=== PATIENT | female | born 1950 | race Caucasian/White ===

== ENCOUNTER 2021-12-25 06:58 | Emergency (ER) | payer MEDICARE, OTHER, SELFPAY ==
--- NOTE | ~2021-12-25 | XR_ITS ---
EXAMINATION: XR SHOULDER, LEFT CLINICAL INFORMATION: Fall, shoulder pain COMPARISON: None TECHNIQUE: AP external rotation, Grashey, scapular Y, and axillary views of the left shoulder. FINDINGS: The bones and soft tissues are normal. No fracture. There is loss of left AC joint space with periarticular spurring. There are enthesophytes along the superior and inferior acromion and greater tuberosity. No abnormal soft tissue calcifications. XR/XR shoulder LT min 2V IMPRESSION: No acute fracture or dislocation. There is mild degenerative changes left AC joint.
[2021-12-25 07:11] VITALS: BP 123/78; PULSE 68; RESP 18; TEMP 36.7; O2SAT 97; BMI 37.5
--- NOTE | 2021-12-25 09:47 | ED_ITS ---
HPI - Fall General Chief Complaint: Fall Stated Complaint: L Shoulder pain/Fall Time Seen by Provider: 12/25/21 09:19 Source: patient Mode of arrival: ambulatory History of Present Illness HPI Narrative: 71-year-old female with no significant past medical history presented to the ED complaining left shoulder pain S/P mechanical slip and fall last night while caring lawn chair and running away from the skunk. Reports landing on left suhas ulder, denies head trauma or LOC. Denies taking anticoagulation. Reports pain with ROM/decreased ROM. Denies headache, neck/back pain, numbness, tingling, CP/SOB complaint: fall Onset (ago): hour(s) Related Data Previous Rx's Medication Instructions Recorded acetaminophen 500 mg tablet 500 mg PO Q6H PRN fever or pain 12/25/21 (Tylenol Extra Strength) #14 tabs cyclobenzaprine 5 mg tablet 5 mg PO Q8H PRN pain (scale score 12/25/21 7-10) 5 days #14 tabs lidocaine 5 % topical patch 1 patch topical DAILY PRN pain #30 12/25/21 (Lidoderm) ea Allergies Allergy/AdvReac Type Severity Reaction Status Date / Time Sulfa (Sulfonamide Allergy Rash Verified 12/25/21 07:10 Antibiotics) amoxicillin [From AUGMENTIN] AdvReac Mild NAUSEA & Unverified 02/09/20 15:45 VOMITING clavulanic acid AdvReac Mild NAUSEA & Unverified 02/09/20 15:45 [From AUGMENTIN] VOMITING Review of Systems Review of Systems: Constitutional: No Fever, No Chills ENT/Mouth: No Ear Pain, No Nasal Congestion, No sore throat, No Rhinorrhea, No Swallowing Difficulty Cardiovascular: No Chest Pain, No SOB Respiratory: No Cough, No Sputum, No Wheezing Gastrointestinal: No Nausea, No Vomiting, No Diarrhea, No Constipation, No Abdominal pain Genitourinary: No Dysuria, No Urinary Frequency, No Hematuria, No Urinary Incontinence/retention Musculoskeletal: + joint pain, No Myalgias, No Joint Swelling Skin: No Skin Lesions, No rash Neuro: No Weakness, No Numbness, No Paresthesias, no head trauma, no LOC Yes all other systems are reviewed and are negative Constitutional: Constitutional: Reports as per [facility] Past Medical History Attestation statement: The following information was validated with the patient. Social History Social History Advance Directives: Yes Advance Directives Information Provided: No Advance Directives on File: No Physical Exam Vital Signs: Vital Signs: Last Vital Signs Temp 98.0 F 12/25/21 07:11 Pulse 68 12/25/21 07:11 Resp 18 12/25/21 07:11 BP 123/78 12/25/21 07:11 Pulse Ox 97 12/25/21 07:11 O2 Del Method 12/25/21 07:11 BMI result Body Mass Index 37.5 Const: General: cooperative, healthy appearing and no acute distress Orientation/consciousness: patient oriented x3 Limitations: no limitations HEENT: Head: Yes normal to inspection and Yes atraumatic Ears: hearing grossly normal bilaterally General nose exam: Normal external nose present Face and sinus: Yes normal facial exam Eyes: General: appearance normal, both eyes and all related structures EOM: EOMs intact bilaterally Neck: Other: No midline cervical spinous tenderness Neck: Yes normal visual inspection and Yes no meningeal signs Resp: Effort & Inspection: normal respiratory effort and no respiratory distress Cardio: Rate: regular rate Heart sounds: S1 normal heart sound present and S2 normal heart sound present Peripheral pulses: radial pulses present and ulnar radial pulses present Skin: Rashes: no rashes Wounds: no wounds Neuro: General: patient oriented x3, tone normal and no meningeal signs Gait exam (Neuro): Normal gait present Extrem: Other: Left shoulder without noted deformity. + tender to palpation greatest at AC joint. No erythema/warmth. Abduction and internal rotation limited secondary to pain. Neurovascular intact distally Course Course Course Narrative: XR shoulder LT min 2V IMPRESSION: No acute fracture or dislocation. ? There is mild degenerative changes left AC joint. > Results discussed with patient including worrisome signs and symptoms and strict return precautions, and when to return to the emergency department. They verbalized understanding and feel safe for discharge at this time. MDM - Fall MDM Narrative Medical decision making narrative: 71-year-old female with no significant past medical history presented to the ED complaining left shoulder pain S/P mechanical slip and fall last night while caring lawn chair and running away from the skunk. On exam vital signs stable, NAD/nontoxic, physical exam as above. Concern for fracture vs tendon or ligamental injury. Lower suspicion for dislocation Plan: X-rays Medical Records Attestation: I reviewed the patient's medical records. Lab Data Attestation: I reviewed the patient's lab results. Discharge Plan Discharge Clinical Impression: Injury of shoulder, left Patient Disposition: Home, Self-Care Instructions: Shoulder Pain (ED) Additional Instructions: Your x-rays do not show any fracture or dislocation, do show mild arthritic changes. Rest, ice, take Tylenol and Flexeril for pain. Flexeril as a muscle relaxer, take at night as it makes you drowsy, do not drive, drink alcohol, or operate machinery while taking. Follow up with her primary care doctor and Orthopedics as needed. You may have an underlying tendon or ligamental injury which could require MRI. Prescriptions: New acetaminophen [Tylenol Extra Strength] 500 mg tablet 500 mg PO Q6H PRN (Reason: fever or pain) Qty: 14 0RF cyclobenzaprine 5 mg tablet 5 mg PO Q8H PRN (Reason: pain (scale score 7-10)) 5 Days Qty: 14 0RF lidocaine [Lidoderm] 5 % adhesive patch,medicated 1 patch topical DAILY MDD remove after 12 hours PRN (Reason: pain) Qty: 30 0RF Rx Instructions: leave on most painful area for up to 12 hrs Referrals: Israel Cope MD [Physician] -
[2021-12-25] MEDS: Cyclobenzaprine HCl 5 MG TABLET PO (10:02)
[2021-12-25] MEDS: Lidocaine 4 % Patch ADH..PATCH 1 PATCH TRANSDERMA (10:03)
== END 2021-12-25 10:14 | disposition home or self-care (01) ==
PROVIDERS: Emergency Provider Emergency Medicine Emergency Medical Services; PCP Internal Medicine
DX: S46.912A Strain of unspecified muscle, fascia and tendon at shoulder and upper arm level, left arm, initial encounter (principal); W01.0XXA Fall on same level from slipping, tripping and stumbling without subsequent striking against object, initial encounter; Y93.9 Activity, unspecified; Y92.9 Unspecified place or not applicable; Y99.9 Unspecified external cause status; Z79.899 Other long term (current) drug therapy
CPT/HCPCS: 73030; 99283

== ENCOUNTER 2022-01-03 07:49 | Outpatient (REF) | payer MEDICARE, OTHER, SELFPAY ==
--- NOTE | ~2022-01-03 | XR_ITS ---
EXAMINATION: XR SHOULDER, LEFT CLINICAL INFORMATION: Pain COMPARISON: Previous x-ray 12/25/2021 TECHNIQUE: Three views of the left shoulder. FINDINGS: Bone alignment is normal. No fracture or dislocation is seen. The glenohumeral joint is normal. There is arthritis at the acromioclavicular joint. Soft tissues are normal. XR/XR shoulder LT min 2V IMPRESSION: Arthritis at the acromioclavicular joint.
== END 2022-01-03 07:50 | disposition home or self-care (01) ==
LOC: HO.HOSX 07:49
PROVIDERS: Visit Provider Physician Assistant
DX: M25.512 Pain in left shoulder (principal)
CPT/HCPCS: 73030

== ENCOUNTER 2022-02-17 05:58 | Outpatient (REF) | payer MEDICARE, OTHER, SELFPAY ==
--- NOTE | ~2022-02-17 | XR_ITS ---
EXAMINATION: XR SHOULDER, LEFT CLINICAL INFORMATION: Pain COMPARISON: Shoulder radiographs 01/03/2022 TECHNIQUE: Two views of the left shoulder. FINDINGS: No acute fracture or dislocation. Moderate osteoarthritis involving the acromioclavicular joint. Glenohumeral joint space is maintained. Soft tissues are unremarkable. XR/XR shoulder LT min 2V IMPRESSION: Moderate osteoarthritis involving the acromioclavicular joint similar to prior.
== END 2022-02-17 05:59 | disposition home or self-care (01) ==
LOC: HO.HOSX 05:58
PROVIDERS: Visit Provider Physician Assistant
DX: M25.512 Pain in left shoulder (principal)
CPT/HCPCS: 73030

== ENCOUNTER 2022-04-09 12:55 | Outpatient (REF) | payer MEDICARE, OTHER, SELFPAY ==
[2022-04-09 14:59] LABS: Blood Urea Nitrogen 26 mg/dL (9-16); Estimated Glomerular Filt Rate 31
== END 2022-04-09 12:56 | disposition home or self-care (01) ==
LOC: HO.LAB 12:55
PROVIDERS: PCP Internal Medicine; Visit Provider Physician Assistant
DX: N20.0 Calculus of kidney (principal)
CPT/HCPCS: 36415; 82565; 84520

== ENCOUNTER 2022-04-10 13:55 | Outpatient (REF) | payer MEDICARE, OTHER, SELFPAY | END 2022-04-10 13:56 | disposition home or self-care (01) | LOC: HO.CT 13:55 | PROVIDERS: Visit Provider Physician Assistant | DX: Z13.89 Encounter for screening for other disorder (principal) ==

== ENCOUNTER 2022-04-16 10:00 | Outpatient (RCR) | payer MEDICARE, OTHER, SELFPAY ==
--- NOTE | 2022-01-17 09:50 | MHC.PT.EP ---
[facility] [place] Office [place] Office [place] Office [address] [phone] F: [phone] F: [phone] F: [phone] F: [phone] Physical Therapy Plan of Care Date of Evaluation: Date of Surgery: N/A Diagnosis: Left avulsion fx of greater tuberosity of humerus (RC + BB) Assessment: pt is a 71yo F presenting to PT with referring diagnosis of greater tuberosity of humerus fx . pt presents with symptoms including; pain, and decreased ROM, poor postural awareness, deferred strength testing of UE today. pt has difficulty with ADLs, reaching, lifting, driving, pulling, pushing, dressing, gardening. pt is a good candidate for skilled PT because she is motivated, pathology and typical disease process. pt will benefit from skilled pt to improve strength, increase ROM, stretching, proper implementation of protocol to advance healing progressively, education on postural awareness, functional mobility, proper lifting mechanics. Frequency and Duration: The patient will be seen 2x/week for 6 weeks Short Term Goals: pt will be I in HEP to promote self management of post-fx status. pt will increase shoulder flexion ROM by 10* to assist in overhead activities. Penitentiary Goals: pt will improve by a statistically significant amount on quick DASH self reported outcome measure to show return to PLOF pt will improve shoulder flexion and abduction strength to 5/5 MMT after period of immobilization and limited use to increase I in ADLs. Treatment Plan: Modalities to reduce pain, spasms and effusion. Manual therapy to restore motion and function. Therapeutic exercise to improve strength and flexibility. Neuromuscular re-education for posture and balance. Therapeutic activities to return to functional activities of daily living. Electronically signed by: Cathy Graham PT, DPT Please sign and return to therapist. Thank you for your referral.
--- NOTE | 2022-04-28 11:00 | MHC.PT.DC ---
[facility] [place] Office [place] Office [place] Office [address] [phone] F: [phone] F: [phone] F: [phone] F: [phone] Physical Therapy Discharge Report Diagnosis: Left avulsion fx of greater tuberosity of humerus (RC + BB) Date of Surgery: N/A Date of Evaluation: 01/17/22 Date of Discharge: 04/28/22 Treatments to Date: 16 Cancellations to Date: 2 No Shows to Date: 1 Discharge Status: Discharge Summary: The patient overall has been reporting less pain/soreness and improved tolerance for ADLs and other activities around the house. She has persistent reproduction of symptoms with forward and outward reaching higher than shoulder height. We have discussed setting up her home environment to reduce overhead reaching to minimize pain symptoms and reduce stress on shoulder. She is independent with her home exercise program which is quite extensive at this time. She has learned to break it down into smaller and more manageable chunks. She no showed her last appointment and is being discharged at this time. Electronically signed by: Cathy Graham PT, DPT Please sign and return to therapist. Thank you for your referral.
== END 2022-04-28 11:00 | disposition home or self-care (01) ==
LOC: HO.PT 10:00
PROVIDERS: Visit Provider Physician Assistant
DX: S42.252A Displaced fracture of greater tuberosity of left humerus, initial encounter for closed fracture (principal)
CPT/HCPCS: 97110; 97140; 97150; 97162

== ENCOUNTER 2022-04-30 08:07 | Outpatient (REF) | payer MEDICARE, OTHER, SELFPAY ==
--- NOTE | ~2022-04-30 | XR_ITS ---
EXAMINATION: XR SHOULDER, LEFT CLINICAL INFORMATION: Left shoulder pain COMPARISON: 02/17/2022 TECHNIQUE: Two views of the left shoulder. FINDINGS: No fracture or dislocation. The glenohumeral joint is well aligned. The acromioclavicular joint is intact with mild hypertrophic degenerative change. Subacromial spur noted. The visualized lung is clear. The visualized ribs are intact. XR/XR shoulder LT min 2V IMPRESSION: Mild degenerative changes of the acromioclavicular joint. Subacromial spur.
== END 2022-04-30 08:08 | disposition home or self-care (01) ==
LOC: HO.HOSX 08:07
PROVIDERS: Visit Provider Physician Assistant
DX: S42.252A Displaced fracture of greater tuberosity of left humerus, initial encounter for closed fracture (principal); M75.02 Adhesive capsulitis of left shoulder
CPT/HCPCS: 73030; 99212

== ENCOUNTER → 2022-05-12 11:12 | Outpatient (BNVA) | payer MEDICARE, OTHER, SELFPAY | PROVIDERS: PCP Internal Medicine; Visit Provider Orthopaedic Surgery | DX: S42.253A Displaced fracture of greater tuberosity of unspecified humerus, initial encounter for closed fracture (principal); M75.101 Unspecified rotator cuff tear or rupture of right shoulder, not specified as traumatic; S42.252A Displaced fracture of greater tuberosity of left humerus, initial encounter for closed fracture | CPT/HCPCS: 99212 ==

== ENCOUNTER 2022-07-23 07:20 | Outpatient (REF) | payer MEDICARE, OTHER, SELFPAY ==
--- NOTE | ~2022-07-23 | CT_ITS ---
EXAMINATION: CT ABDOMEN AND PELVIS WITHOUT CONTRAST CLINICAL INFORMATION: Right upper quadrant calcification. COMPARISON: None TECHNIQUE: Multidetector volumetric imaging was performed from the superior aspect of the liver through the pubic symphysis. Sagittal and coronal reformatted images were obtained on the technologist's workstation. This CT examination was performed using dose optimization techniques as appropriate, variously including the following: *Automated exposure control *Adjustment of mA and/or kV according to patient size (this includes techniques or standardized protocols for targeted exams where dose is matched to indication/reason for exam; i.e. extremities or head) *Use of iterative reconstruction technique DLP: 534 mGy-cm FINDINGS: LUNG BASES: Minimal linear atelectasis in the lingula. There is minimal bilateral posterior pleural thickening. The heart size is normal. LIVER, GALLBLADDER, AND BILIARY TREE: The liver is normal in size, shape, and attenuation. No focal hepatic lesion or biliary ductal dilatation is present. There are multiple dependent radiopaque gallstones without wall thickening. PANCREAS: Unremarkable. SPLEEN: Unremarkable. ADRENAL GLANDS: Unremarkable. KIDNEYS AND URETERS: The kidneys are normal in size, shape, and attenuation. No hydronephrosis, hydroureter, or calculi seen. There are bilateral renal cysts. Largest cyst exophytic lower pole left kidney measures 2.5 cm. There is bilateral perinephric stranding. There is a retroaortic left renal vein present. BLADDER: Unremarkable. GASTROINTESTINAL TRACT: There is scattered stool, diverticuli and gas seen throughout the colon without distention. The small-bowel loops are normal caliber. Appendix is not visualized. ABDOMINAL WALL: No significant hernia is appreciated. LYMPH NODES: Normal. VASCULAR: There are mild atherosclerotic changes of abdominal aorta without aneurysmal dilatation. PELVIC VISCERA: Unremarkable. OSSEOUS STRUCTURES: No aggressive lytic or sclerotic process seen. There is moderate spondylosis ventral lower dorsal and upper lumbar spine. No aggressive lytic or sclerotic process seen. CT/CT abdomen pelvis wo IV con IMPRESSION: 1. Cholelithiasis without wall thickening. 2. Bilateral renal cysts without radiopaque calculi or hydronephrosis. 3. Colonic diverticulosis without diverticulitis. Fleischner guidelines were followed.
== END 2022-07-23 07:21 | disposition home or self-care (01) ==
LOC: HO.CT 07:20
PROVIDERS: Visit Provider Physician Assistant
DX: N20.0 Calculus of kidney (principal); D30.00 Benign neoplasm of unspecified kidney
CPT/HCPCS: 74176

== ENCOUNTER 2022-08-27 11:17 | Outpatient (REF) | payer MEDICARE, OTHER, SELFPAY ==
[2022-08-27 13:45] LABS: Estimated Average Glucose 166 mg/dL; Hemoglobin A1c % 7.4 %
[2022-08-27 13:53] LABS: Alanine Aminotransferase 17 U/L (0-31); Albumin Level 3.9 g/dL (3.5-5.0); Alkaline Phosphatase 82 U/L (39-117); Anion Gap 11 (12-20); Aspartate Amino Transferase 18 U/L (5-31); Bilirubin Total 0.6 mg/dL (0.0-1.0); Blood Urea Nitrogen 25 mg/dL (9-16); Calcium 9.3 mg/dL (8.4-10.2); Carbon Dioxide 29 mmol/L (22-29); Chloride 104 mmol/L (96-108); Cholesterol 178 mg/dL; Estimated Glomerular Filt Rate 32; Glucose Fasting 162 mg/dL (60-99); HDL Cholesterol 39 mg/dL; LDL Cholesterol Calculated 94 mg/dl; Potassium 4.7 mmol/L (3.3-5.1); Sodium 139 mmol/L (135-145); Total Protein 6.6 g/dL (6.5-8.0); Triglycerides 228 mg/dL
== END 2022-08-27 11:18 | disposition home or self-care (01) ==
LOC: HO.10HDL 11:17
PROVIDERS: Visit Provider Internal Medicine
DX: E11.9 Type 2 diabetes mellitus without complications (principal); E78.00 Pure hypercholesterolemia, unspecified; I27.29 Other secondary pulmonary hypertension; N18.9 Chronic kidney disease, unspecified
CPT/HCPCS: 36415; 80053; 80061; 83036

== ENCOUNTER 2023-07-16 09:00 | Outpatient (REF) | payer MEDICARE, OTHER, SELFPAY ==
[2023-07-16 09:23] LABS: MANUAL DIFF FLAG NO
[2023-07-16 10:12] LABS: Basophils Percent Auto 0.4 % (0-2); Eosinophils Absolute Auto 0.1 X10*3/uL (0.0-0.4); Eosinophils Percent Auto 1.5 % (0-4); Hematocrit 43.9 % (37.0-47.0); Hemoglobin 14.2 g/dl (12.0-16.0); Imm Gran Abs Auto 0.02 X10*3/uL (0.00-0.03); Imm Gran Pct Auto 0.4 % (0.0-0.4); Lymphocytes Percent Auto 36.3 % (20-40); Mean Corpuscular HGB Conc 32.3 g/dl (31.0-35.0); Mean Corpuscular Hemoglobin 27.8 pg (27.0-33.0); Mean Corpuscular Volume 86.1 fL (80.0-98.0); Mean Platelet Volume 8.8 fL (9.4-12.3); Monocytes Absolute Auto 0.4 X10*3/uL (0.1-1.2); Monocytes Percent Auto 7.4 % (2-11); Neutrophils Absolute Auto 2.9 x10*3/uL (2.0-8.3); Platelet Count 191 X10*3/uL (160-400); Red Cell Distribution Width 13.8 % (11.0-16.0); White Blood Count 5.4 X10*3/uL (4.8-10.8)
[2023-07-16 10:19] LABS: Appearance Urine Clear; Color Urine Yellow; Glucose Urine UA Negative (Negative); Leukocyte Esterase Urine Small (1+) (Negative); Nitrite Urine Negative (Negative); PH 5.5 (5.0-9.0); UMIC TRIGGER UACC YES; Urine Blood Negative (Negative); Urine Ketones Negative (Negative); Urine Protein Negative (Neg-Trace)
[2023-07-16 10:48] LABS: Bacteria Urine None Seen (None Seen); Hyaline Casts Urine 0-2 /LPF (0-2); RBC Urine 0-2 /HPF (0-2); UACC Culture Trigger YES
[2023-07-16 11:03] LABS: Estimated Average Glucose 151 mg/dL; Hemoglobin A1c % 6.9 % (<6.0)
[2023-07-16 11:16] LABS: Alanine Aminotransferase 25 U/L (0-31); Albumin Level 3.9 g/dL (3.5-5.0); Alkaline Phosphatase 86 U/L (39-117); Anion Gap 12 (12-20); Aspartate Amino Transferase 21 U/L (5-31); Bilirubin Total 0.5 mg/dL (0.0-1.0); Blood Urea Nitrogen 23 mg/dL (9-16); Calcium 9.6 mg/dL (8.4-10.2); Carbon Dioxide 29 mmol/L (22-29); Chloride 104 mmol/L (96-108); Estimated Glomerular Filt Rate 43; Glucose Random 137 mg/dL (60-115); Potassium 4.1 mmol/L (3.3-5.1); Sodium 141 mmol/L (135-145); Total Protein 7.2 g/dL (6.5-8.0)
[2023-07-16 11:18] LABS: Anion Gap 11 (12-20); Blood Urea Nitrogen 22 mg/dL (9-16); Calcium 9.6 mg/dL (8.4-10.2); Carbon Dioxide 29 mmol/L (22-29); Chloride 104 mmol/L (96-108); Cholesterol 163 mg/dL (<200); Estimated Glomerular Filt Rate 44; HDL Cholesterol 42 mg/dL (>40); Iron 63 mcg/dL (30-160); LDL Cholesterol Calculated 84 mg/dL (<100); Magnesium 2.1 mg/dL (1.6-2.6); Percent Iron Saturation 24 % (15-50); Potassium 4.3 mmol/L (3.3-5.1); Sodium 140 mmol/L (135-145); Total Iron Binding Capacity 266 mcg/dL (228-428); Triglycerides 188 mg/dL (<150); Unsaturated Iron Binding 203 ug/dL
[2023-07-16 11:22] LABS: Creatinine Urine 136.25 mg/dL; Microalbum/Creatinine Ratio Ur 13.2 ug/mg cr (<30)
[2023-07-16 11:36] LABS: Vitamin D 25-OH Total 29.9 ng/mL (>30)
== END 2023-07-16 09:01 | disposition home or self-care (01) ==
LOC: HO.LAB 09:00
PROVIDERS: Absent Provider Physician Assistant; PCP Internal Medicine; Visit Provider Internal Medicine
DX: E11.9 Type 2 diabetes mellitus without complications (principal); E78.00 Pure hypercholesterolemia, unspecified; I10 Essential (primary) hypertension; N18.32 Chronic kidney disease, stage 3b; E78.1 Pure hyperglyceridemia
CPT/HCPCS: 36415; 80051; 80053; 80061; 81001; 82043; 82306; 82310; 82565; 82570; 83036; 83540; 83735; 84520; 84550; 85025; 87086

== ENCOUNTER 2025-02-06 09:23 | Day surgery (SDC) | payer MEDICARE, OTHER, SELFPAY ==
--- OUTSIDE RECORDS SUMMARY | 2024-12-20 14:28 | XMS_ITS | Patient Health Record ---
[facility] Address [address] [place] [address] Care Team Providers Care Bio Medical Technician Name Role Phone Anndeepa Kateryna Primary Care Provider Unavailab kelton DanielsKrystin Unavailable [phone] Allergies Allergen (clinical drug ingredient) Drug/Non Drug Allergy documented on EMR Reaction Allergy Type Onset Date Status sulfamethoxazole / trimethoprim Bactrim Unknown Drug Allergy Active oxaprozin Daypro vomiting Drug Allergy Active Levaquin vomiting Drug Allergy Active erythromycin Erythromycin vomiting Drug Allergy A ctive gentamicin Gentamicin swollen eyes Drug Allergy Ac tive Results Component Value Reference Range Notes HEMOGLOBIN A1C (GLYCOHEMOGLO BIN) Reviewed date:12/05/2024 09:42:11 AM Interpretation: Performing Lab: Notes/Report: HEMOGLOBIN A1C % (HH) 7.4 Reason For Referral No Information Medications Medication SIG (Take, Route, Frequency, Duration) Notes Start Date End Date Status Jardiance 10 MG 1 tablet Orally Once a day; Duration: 30 day(s) Not-Taking Ciclopirox 8 % 1 application Externally Once a day; Duration: 30 12/07/2023 Active Allopurinol 100 mg A ctive Potassium Citrate ER 10 MEQ (1080 MG) 1 tablet with meals Orally twice a day; Duration: 30 days Active Candesartan Cilexetil 32 MG 1 tablet Ora lly Once a day; Duration: 30 day(s) Active Crestor 10 MG 1 tablet Orally Once a day Active hydroCHLOROthiazide 25 MG 1 tablet Orall y Once a day; Duration: 30 day(s) Not-Taking Doxazosin Mesylate A ctive Januvia 100 MG 1 tablet Orally Once a day; Duration: 30 day(s) Not-Taking Aspirin 81 MG 1 tablet Orally Once a day; Duration: 30 day(s) Active Losartan Potassium-HCTZ 100/25 mg Not-Taking Ozempic Active Work Note . . . .; Duration: . 04/04/2013 Not-Taking metFORMIN HCl 850 MG 1 tablet with a brayan l Orally Once a day Not-Taking Ziac 5/6.5 mg Active Immunizations Vaccine Route Administration Date Status Comme nts Influenza Unknown 02/13/2020 Administered Influenza Unknown 02/22/2021 Administered Influenza Unknown 02/22/2023 Administered Influenza Unknown 03/09/2024 Administered COVID-19 Pfizer BioNTech Vaccine Unknown 04/23/2021 Administered First Dose: 08/03/2020 2nd dose: 08/29/2020 Social History Tobacco Use: Social History Observation Description Date Details (start date - stop date) Never Smoker NA - NA Tobacco use other than smoking: Question Answer Notes Are you an other tobacco user? No Tobacco Control (Standard) Question Answer Notes Tobacco use: Nonsmoker Additional Findings: Tobacco non-user Current no nsmoker AUDIT-C (Standard) Question Answer Notes Did you have a drink contain ing alcohol in the past year? Yes How often did you have a dri nk containing alcohol in the past year? Monthly or less (1 point) How many drinks did you have on a typical day when you were drinking in the past year? 1 or 2 drinks (0 point) How often did you have six o r more drinks on one occasion in the past year? Never (0 point) Points 1 Interpretation Negative Problems Problem Type SNOMED Code ICD Code Onset Dates Problem Status W/U Status Risk Notes Problem Acquired hammer toe of right foot (923864687008241 5) Other hammer toe(s) (acquired), right foot (M20.41) Active confirmed Problem Acquired hammer toe of left foot (191623963466600 3) Other hammer toe(s) (acquired), left foot (M20.42) Active confirmed Problem Diabetic renal disease (823380812) Type 2 diabetes mellitus with diabetic chronic kidney disease (E11.22) Active confirmed Problem Type II diabetes mellitus without complication (688573280) Type 2 diabetes mellitus without complications (E11.9) Active confirmed Vital Signs Blood pressure diastolic 70 mm Hg 12/05/2024 Height 5ft 1.5in in 12/05/2024 Blood pressure systolic 130 mm Hg 12/05/2024 Weight 202 lbs 12/05/2024 BMI 37.55 kg/m2 12/05/2024 Procedures Procedure Date Ordered Date Performed Result Body Sit e 55374-DRXUOXQ NAIL, 6 OR MORE 12/05/2024 N/A Encounters Encounter Location Date Provider Diagnosis [facility] [address] [place] [address] 12/05/2024 Krystin Black Tinea unguium B35.1 ; Other hammer toe(s) (acquired), right foot M20.41 ; Pain in right toe(s) M79.674 ; Pain in left toe(s) M79.675 ; Type 2 diabetes mellitus with diabetic chronic kidney disease E11.22 ; Other hammer toe(s) (acquired), left foot M20.42 and Type 2 diabetes mellitus without complications E11.9 Assessments Encounter Date Diagnosis (ICD Code) Assessment Notes Treatment Notes Treatment Clinical Notes Section Notes 12/05/2024 Other hammer toe(s) (acquired), right foot (ICD-10 - M20.41) Patient Educated with: DIABETIC FOOT CARE INSTRUCTIONS.p df (DIABETIC FOOT CARE INSTRUCTIONS.p df) 12/05/2024 Tinea unguium (ICD-10 - B35.1) 12/05/2024 Pain in right toe(s) (ICD-10 - M79.674) 12/05/2024 Pain in left toe(s) (ICD-10 - M79.675) 12/05/2024 Type 2 diabetes mellitus with diabetic chronic kidney disease (ICD-10 - E11.22) Patient Educated with: DIABETIC FOOT CARE INSTRUCTIONS.p df (DIABETIC FOOT CARE INSTRUCTIONS.p df) 12/05/2024 Other hammer toe(s) (acquired), left foot (ICD-10 - M20.42) 12/05/2024 Type 2 diabetes mellitus without complications (ICD-10 - E11.9) Plan Of Treatment Pending Test Test Name Order Date X ray : Foot, left 3V 04/04/2013 [id number] NAIL, 6 OR MORE 04/04/2013 [id number] NAIL, 6 OR MORE 08/01/2013 62835-[id number] NAIL, 6 OR MORE 12/16/2021 [id number] NAIL, 6 OR MORE 12/08/2022 [id number] NAIL, 6 OR MORE 12/07/2023 [id number] NAIL, 6 OR MORE 12/05/2024 92447-Eoxvamux Plate 12/07/2023 64598-Vfinobjm Plate 12/08/2022 01983-Jhdrebde Plate 08/15/2021 30543-Tvvbszdn Plate Each Additional [id number] 04/04/2013 26007- Debride <25 sq cm 05/12/2013 00439- Debride <25 sq cm 08/01/2013 68086-MDGDJYO SKIN/TISSUE 04/26/2013 Next Appt Details Provider Name:Krystin Daniels , 02/05/2026 10:00:00 AM, [address] [place], [address], Insurance Providers Payer Name Payer Address Payer Phone Subscriber Number Group Number Insured Name Patient Relationship to Insured Coverage Start Date Coverage End Date Medicare [facility] [address] [place] [address] [id number] Aylin Pelayo Self - patient is the insured [employer] [facility] [address] [place] [address] [phone] [id number] Aylin Self - patient is the insured Medical (General) History Medical History History ICD Code Arthritis, OA cholesterol type II diabetes measles mumps chicken pox hypertension joint implants/screws Cataracts Kidney disease Eczema PlantarFlexion of metatarsal of left lois t M21.6X2 Primary osteoarthritis, left ankle and f oot M19.072 Surgical History Surgery Date(Month/Year) left knee replacement 2008 carpal tunnel surgery (R)1994/ (L)1996 kidney stones 04/15/2013, 2017 stent removal 04/26/2013 knee replacement 2018 right cataract surgery 2019 Cataract surgery 2022
--- OUTSIDE RECORDS SUMMARY | 2024-12-20 14:28 | XMS_ITS | Patient Health Record ---
Author Organization [facility] Address [address] [place] [address] Care Team Providers Care Operation Shift Supervisor Name Role Phone Kateryna Nettles Primary Care Provider Salbador Soares Unavailable [phone] Allergies Allergen (clinical drug ingredient) Drug/Non Drug Allergy documented on EMR Reaction Allergy Type Onset Date Status Sulfa Unknown Drug Allergy Active Erythrocin Unknown Drug Allergy Active oxaprozin Daypro Unknown Drug Allergy Active amoxicillin / clavulanate Augmentin Unknown Drug Allergy Active Reason For Referral No Information Medications Medication SIG (Take, Route, Frequency, Duration) Notes Start Date End Date Status Candesartan Cilexetil 32 MG TAKE 1 TABLET DAILY Oral for 90 Days Active Ozempic (0.25 or 0.5 MG/DOSE) 2 MG/3ML 0.5 MG INJECT 0.5 MG SUBCUTANEOUSLY ONCE A WEEK Subcutaneous for 28 Days Active Ziac Active Bisoprolol-hydroCHLOROthi azide 5-6.25 MG Oral for 90 Days Active Potassium Citrate ER 10 MEQ (1080 MG) Oral for 90 Days Active Allopurinol 300 MG 1 tablet Orally Once a day Active Rosuvastatin Calcium 20 MG 1 tablet Orally Once a day A ctive Doxazosin Mesylate 4 MG 1 tablet Orally Once a day Active Aspirin 81 81 MG 1 tablet Orally Once a day Active Problems Problem Type SNOMED Code ICD Code Onset Dates Problem Status W/U Status Risk Notes Problem Colon cancer screening (356420149) Colon cancer screening (Z12.11) Active confirmed Problem Dysphagia (15049561) Dysphagia (R13.10) Active confirmed Problem Gastroesophageal reflux disease (984505582) GERD (gastroesopha geal reflux disease) (K21.9) Active confirmed Vital Signs Blood pressure diastolic 77 mm Hg 11/01/2024 Height 63 in 11/01/2024 Blood pressure systolic 111 mm Hg 11/01/2024 Weight 203 lbs 11/01/2024 BMI 35.96 kg/m2 11/01/2024 Procedures Procedure Date Ordered Date Performed Result Body Sit e UPPER GI ENDOSCOPY BALLOOON DILATION OF ESOPH 11/01/2024 N/A COLONOSCOPY 11/01/2024 N/A Encounters Encounter Location Date Provider Diagnosis [facility] [address] [place] [address] 11/01/2024 Salbador Chapman GERD (gastroesophageal reflux disease) K21.9 ; Dysphagia R13.10 and Colon cancer screening Z12.11 Assessments Encounter Date Diagnosis (ICD Code) Assessment Notes Treatment Notes Treatment Clinical Notes Section Notes 11/01/2024 Dysphagia (ICD-10 - R13.10) Overall, Aylin appears well. I did recommend a follow-up colonoscopy for screening purposes given her age, good clinical appearance, and her last exam being over 10 years ago. We did review the rationale for this in regard to colon cancer prevention. I also recommended an upper endoscopy on the same day given her history of intermittent reflux and the description of occasional dysphagia. We did review that if she is found to have an esophageal ring or stricture then she may require balloon dilation at that same time. The symptoms of dysphagia that she describes do seem more consistent with a probable esophageal spasm as opposed to anything more significant or worrisome. I did advise her to continue the famotidine as needed for the time being. If I find more significant esophagitis then we may want to switch her to a daily PPI instead. Full consent has been obtained from Aylin for both procedures, including risks of bleeding and perforation. She was given the below instructions regarding adjustment of her medications for the procedure. Aylin was comfortable with this plan. Thank you again for allowing me to participate in Aylin's care. I shall continue to keep you advised of her progress. 11/01/2024 GERD (gastroesophag eal reflux disease) (ICD-10 - K21.9) Overall, Aylin appears well. I did recommend a follow-up colonoscopy for screening purposes given her age, good clinical appearance, and her last exam being over 10 years ago. We did review the rationale for this in regard to colon cancer prevention. I also recommended an upper endoscopy on the same day given her history of intermittent reflux and the description of occasional dysphagia. We did review that if she is found to have an esophageal ring or stricture then she may require balloon dilation at that same time. The symptoms of dysphagia that she describes do seem more consistent with a probable esophageal spasm as opposed to anything more significant or worrisome. I did advise her to continue the famotidine as needed for the time being. If I find more significant esophagitis then we may want to switch her to a daily PPI instead. Full consent has been obtained from Aylin for both procedures, including risks of bleeding and perforation. She was given the below instructions regarding adjustment of her medications for the procedure. Aylin was comfortable with this plan. Thank you again for allowing me to participate in Aylin's care. I shall continue to keep you advised of her progress. 11/01/2024 Colon cancer screening (ICD-10 - Z12.11) Overall, Aylin appears well. I did recommend a follow-up colonoscopy for screening purposes given her age, good clinical appearance, and her last exam being over 10 years ago. We did review the rationale for this in regard to colon cancer prevention. I also recommended an upper endoscopy on the same day given her history of intermittent reflux and the description of occasional dysphagia. We did review that if she is found to have an esophageal ring or stricture then she may require balloon dilation at that same time. The symptoms of dysphagia that she describes do seem more consistent with a probable esophageal spasm as opposed to anything more significant or worrisome. I did advise her to continue the famotidine as needed for the time being. If I find more significant esophagitis then we may want to switch her to a daily PPI instead. Full consent has been obtained from Aylin for both procedures, including risks of bleeding and perforation. She was given the below instructions regarding adjustment of her medications for the procedure. Aylin was comfortable with this plan. Thank you again for allowing me to participate in Aylin's care. I shall continue to keep you advised of her progress. Plan Of Treatment Pending Test Test Name Order Date UPPER GI ENDOSCOPY BALLOOON DILATION OF ESOPH 11/01/2024 COLONOSCOPY 11/01/2024 Future Test Test Name Order Date COLONOSCOPY 03/30/2013 Next Appt Details Provider Name:Salbador Chapman , 02/06/2025 10:30:00 AM, [facility] , [place], [place], [id number], Insurance Providers Payer Name Payer Address Payer Phone Subscriber Number Group Number Insured Name Patient Relationship to Insured Coverage Start Date Coverage End Date MEDICARE OF [place] [address] [place] [address] [id number] AYLIN KIM Self - patient is the insured [employer] ([employer]) [address] [place] [address] [phone] [id number] Self - patient is the insured Medical (General) History Medical History History ICD Code hypertension hyperlipidemia Negative colonoscopy in 02/2003 except f or a hyperplastic polyp Kidney stones NIDDM Denies CA,CVA,Lung disease,renal disease Arthritis in hands and knees Screening colonoscopy in May was negative other than a hyperplastic polyp Surgical History Surgery Date(Month/Year) Spinal stenosis 2021 Bilateral carpal tunnel Knee replacements--
--- OUTSIDE RECORDS SUMMARY | 2024-12-20 14:28 | XMS_ITS | Encounter Summary ---
Author Organization [facility], Address [address] [place] [address] Phone Care Team Providers Care Daytime Babysitter Name Role Phone Kateryna Nettles MD Primary Care Provider [phone] Encounter Details Date Type Department Care Team (Late Contact Info) Description 11/04/2021 Documentation Only [facility] [address] [place] [address] Pedro Barfield MD [address] [place] [address] [place] [address] Social History Tobacco Use Types Packs/Day Years Used Date Smoking Tobacco: Never Alcohol Use Standard Drinks/Week Comments Yes 0 (1 standard drink = 0.6 oz pure alcohol) Alcoholic Drinks/day: Occasional social drink Comments Unknown Sex and Gender Information Value Date Recorded Sex Assigned at Not on file Legal Sex Female 4:36 PM EST Gender Identity Not on file Sexual Orientation Not on file documented as of this encounter Plan of Treatment Upcoming Encounters Date Type Department Care Team (Late Contact Info) Description 02/28/2025 1:45 PM EDT Office Visit [facility] [address] [place] [address] Pedro Barfield MD [address] [place] [address] documented as of this encounter Visit Diagnoses Not on filedocumented in this encounter Care Teams Daytime Babysitter Relationship Specialty Start Date End Date Kateryna Nettles MD [facility] [address] PCP - General 03/29/19 documented as of this encounter
--- OUTSIDE RECORDS SUMMARY | 2024-12-20 14:28 | XMS_ITS | Clinical Summary ---
Author Organization [facility] Address [address] [place] [address] Phone Care Team Providers Care Logistics Supervisor Name Role Phone Kateryna Nettles MD Primary Care Provider [phone] Surgical History Surgery Date Site/Laterality Comments TOTAL KNEE ARTHROPLASTY PROCEDURE: SC ARTHRP KNE CONDYLE&PLATU MEDIAL&LAT COMPARTMENTS; COMMENT: Left (05/02) Right (05/2017) LITHOTRIPSY N/A PROCEDURE: HISTORICAL LITHOTRIPSY; COMMENT: 07/12/2015 and 12/05/15 CARPAL TUNNEL RELEASE Bilateral PROCEDURE: HISTORICAL CARPAL TUNNEL REL; COMMENT: OTHER SURGICAL HISTORY 11/19/2021 PROCEDURE: SC GUERRA FACETECTOMY & FORAMOTOMY 1 VRT SGM LUMBAR; COMMENT: L2-3, L3-4 decompression, Dr. Yoder Medical History Medical History Date Comments Essential (primary) hypertension DX:Essential (primary) hypertension Arthritis DX:Arthritis Type 2 diabetes mellitus wit hout complications ([facility]/HCC V24, [facility] V28) DX:Type 2 jeana betes mellitus without complications ([facility]) Mixed hyperlipidemia DX:Mixed hy perlipidemia Obesity DX:Obesity Uric acid kidney stone DX:Uric a moni kidney stone; COMMENT: pt denies gout CKD (chronic kidney disease) DX: CKD (chronic kidney disease); COMMENT: pt follows with 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, cassidy Burgess per pt Family History Medical History Relation Name Comments Mental illness Father Other: Other Father Asthma Mother Hypertension Mother Relation Name Status Comments Father Mother Social History Tobacco Use Types Packs/Day Years Used Date Smoking Tobacco: Never Smokeless Tobacco: Never Alcohol Use Standard Drinks/Week Comments Yes 0 (1 standard drink = 0.6 oz pur e alcohol) Comments No Sex and Gender Information Value Date Recorded Sex Assigned at Not on file Legal Sex Female 6:42 PM EST Gender Identity Not on file Sexual Orientation Not on file Obstetrics History Last Filed Vital Signs Vital Sign Reading Time Taken Comments Blood Pressure - - Pulse - - Temperature - - Respiratory Rate - - Oxygen Saturation - - Inhaled Oxygen Concentration - - Weight 93 kg (205 lb) 06/01/2024 9:53 AM EST Height 154.9 cm (5' 1 ) 06/01/2024 9:53 AM EST Body Mass Index 38.73 06/01/2024 9:53 AM EST Plan of Treatment Health Maintenance Due Date Last Done Comments Diabetes: Annual Foot Exam 1960 Diabetes: Annual Retina Eye Exam 1960 DTaP,Tdap,and Td Vaccines (1 - Tdap) 1969 Zoster Vaccines (1 of 2) 2000 RSV Immunization Adult Patients (1 - Risk 60-74 years 1-dose series) 2010 Pneumococcal Vaccine: 50+ Years (2 of 2 - PPSV23) 08/11/2016 06/16/2016 Colorectal Cancer Screening: Colonoscopy 04/26/2022 Falls Risk Assessment 04/26/2022 Hepatitis C Screening 04/26/2022 Medicare Annual Wellness Visit 04/26/2022 Social Influencers of Health Screening 04/26/2022 COVID-19 Vaccine (2 - season) 2024 04/23/2021 Depression Screening 05/25/2024 Influenza Vaccine (#1) 2025 , 02/26/2020, 02/13/2020, Additional history exists Diabetes: Blood Sugar Control Test (HGBA1C) 02/02/2025 08/02/2024, 02/11/2023 Diabetes: Annual Urine Albumin-Creatinine Ratio (uACR) 08/02/2025 08/02/2024 Diabetes: Annual GFR (Glomerular Filtration Rate) 08/02/2025 08/02/2024 Hypertension/CHF/CAD Annual BMP Blood Test 08/02/2025 08/02/2024 Breast Cancer Screening 06/01/2026 06/01/19, 02/23/2023, 09/06/2020, Additional history exists Cholesterol Screening (Lipid Panel) 08/02/2029 08/02/2024 Osteoporosis Screening (Bone Density Screening) 06/01/2034 06/01/2024 HIB Vaccines Aged Out No longer eligi ble based on patient's age to complete this topic HPV Vaccines Aged Out No longer eligi ble based on patient's age to complete this topic Hepatitis A Vaccines Aged Out No long er eligible based on patient's age to complete this topic Hepatitis B Vaccines Aged Out No long er eligible based on patient's age to complete this topic IPV Vaccines Aged Out No longer eligi ble based on patient's age to complete this topic MMR Vaccines Aged Out No longer eligi ble based on patient's age to complete this topic Meningococcal ACWY Vaccine Aged Out N o longer eligible based on patient's age to complete this topic Meningococcal B Vaccine Aged Out No l onger eligible based on patient's age to complete this topic RSV Immunization Patients Under 20 months Aged Out No longer eligible based on patient's age to complete this topic Varicella Vaccines Aged Out No longer eligible based on patient's age to complete this topic Procedures Procedure Name Priority Date/Time Associated Diagnosis Comments MICROALBUMIN CREATININE URINE RATIO Routine 08/02/2024 12:50 PM EDT Type II or unspecified type diabetes mellitus with renal manifestations, uncontrolled(250.42) ([facility] V24, [facility] V28) Pure hypercholesterolemia Essential hypertension, benign 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 IV, or unspecified(403.10) COMPREHENSIVE METABOLIC PANEL Routine 08/02/2024 12:50 PM EDT Type II or unspecified type diabetes mellitus with renal manifestations, uncontrolled(250.42) (CMS/HCC V24, [facility] V28) Pure hypercholesterolemia Essential hypertension, benign 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 IV, or unspecified(403.10) HEMOGLOBIN A1C Routine 08/02/2024 12:50 PM EDT Type II or unspecified type diabetes mellitus with renal manifestations, uncontrolled(250.42) ([facility] V24, [facility] V28) Pure hypercholesterolemia Essential hypertension, benign 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 IV, or unspecified(403.10) LIPID PANEL WITH REFLEX TO DIRECT LDL Routine 08/02/2024 12:50 PM EDT Type II or unspecified type diabetes mellitus with renal manifestations, uncontrolled(250.42) (CMS/HCC V24, [facility] V28) Pure hypercholesterolemia Essential hypertension, benign 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 IV, or unspecified(403.10) MG MAMMO DIGITAL SCREENING W LILI BILAT Routine 06/01/2024 10:03 AM EST Encounter for screening mammogram for malignant neoplasm of breast BD BONE DENSITY DXA AXIAL SKELETON Routine 06/01/2024 9:50 AM EST Post-menopausal from Last 3 Months or Most Recently Relevant to Health Maintenance Results * (ABNORMAL) Lipid panel with reflex to direct LDL (08/02/2024 12:50 PM EDT) Cholesterol 157 0 - 200 mg/dL LAB CHEMISTRY METHOD 08/02/2024 3:07 PM [facility] Triglycerides 194(H) 0 - 150 mg/dL LAB CHEMISTRY METHOD 08/02/2024 3:07 PM [facility] HDL 44 >=40 mg/dL LAB CHEMISTRY METHOD 08/02/2024 3:07 PM [facility] LDL Calculated 74 0 - 100 mg/dL LAB CHEMISTRY METHOD 08/02/2024 3:07 PM [facility] VLDL Cholesterol Gordon 38.8 mg/dL LAB CHEMISTRY METHOD 08/02/2024 3:07 PM [facility] Non HDL Chol. (LDL+VLDL) 113 <145 mg/dL LAB CHEMISTRY METHOD 08/02/2024 3:07 PM [facility] Chol/HDL Ratio 3.6 0.0 - 4.4 LAB CHEMISTRY METHOD 08/02/2024 3:07 PM [facility] Blood Venous blood specimen / Unknown Venipuncture / Unknown 08/02/2024 12:50 PM EDT 08/02/2024 1:00 PM EDT us Kateryna Nettles MD LAB BLOOD ORDERABLES Final Re sult [facility] [address] [place] [address], [place] [phone] * Microalbumin creatinine urine ratio (08/02/2024 12:50 PM EDT) Creatinine, Urine 119.0 mg/dL LAB CHEMISTRY METHOD 08/02/2024 3:14 PM EDT [facility] Microalb, Ur 17.8 0.0 - 29.0 mg/L LAB CHEMISTRY METHOD 08/02/2024 3:14 PM EDT [facility] Microalb/Creat Ratio 15 <30 mg/g creat LAB CHEMISTRY METHOD 08/02/2024 3:14 PM EDT [facility] Urine Urine specimen obtained by clean catch procedure / Unknown Non-blood Collection / Unknown 08/02/2024 12:50 PM EDT 08/02/2024 1:01 PM EDT us Kateryna Nettles MD LAB URINE ORDERABLES Final Re sult Performing Organization Address City/[facility]/ZIP Co de Phone Number [facility] [address] [place] [address], [place] [phone] * (ABNORMAL) Hemoglobin A1c (08/02/2024 12:50 PM EDT) Hemoglobin A1C 7.6(H) <6.5 % LAB CHEMISTRY METHOD 08/02/2024 9:25 PM EDT [facility] Mean Bld Glu Estim. 171 mg/dL LAB CHEMISTRY METHOD 08/02/2024 9:25 PM EDT [facility] Blood Venous blood specimen / Unknown Venipuncture / Unknown 08/02/2024 12:50 PM EDT 08/02/2024 1:03 PM EDT us Kateryna Nettles MD LAB BLOOD ORDERABLES Final Re sult [facility] [address] [place] [address], [place] [phone] * (ABNORMAL) Comprehensive metabolic panel (08/02/2024 12:50 PM EDT) Pathologist [facility] Sodium 139 133 - 145 mmol/L LAB CHEMISTRY METHOD 08/02/2024 3:07 PM [facility] Potassium 4.4 3.5 - 5.5 mmol/L LAB CHEMISTRY METHOD 08/02/2024 3:07 PM [facility] Chloride 105 96 - 110 mmol/L LAB CHEMISTRY METHOD 08/02/2024 3:07 PM [facility] CO2 27 21 - 32 mmol/L LAB CHEMISTRY METHOD 08/02/2024 3:07 PM [facility] Anion Gap 7 3 - 11 LAB CHEMISTRY METHOD 08/02/2024 3:07 PM [facility] Glucose 136(H) 70 - 100 mg/dL LAB CHEMISTRY METHOD 08/02/2024 3:07 PM [facility] BUN 26(H) 5 - 25 mg/dL LAB CHEMISTRY METHOD 08/02/2024 3:07 PM [facility] Creatinine 1.48(H) 0.50 - 1.10 mg/dL LAB CHEMISTRY METHOD 08/02/2024 3:07 PM [facility] eGFR 37(L) >=60 mL/min/1. 73m2 LAB CHEMISTRY METHOD 08/02/2024 3:07 PM [facility] Comment:Calculation based on the Chronic Kidney Disease Epidemiology Collaboration (CKD-EPI) equation refit without adjustment for race. BUN/Creatinine Ratio 17.6 LAB CHEMISTRY METHOD 08/02/2024 3:07 PM [facility] Calcium 9.6 8.5 - 10.5 mg/dL LAB CHEMISTRY METHOD 08/02/2024 3:07 PM [facility] AST (SGOT) 23 10 - 42 unit/L LAB CHEMISTRY METHOD 08/02/2024 3:07 PM [facility] ALT (SGPT) 32 10 - 60 unit/L LAB CHEMISTRY METHOD 08/02/2024 3:07 PM [facility] Alkaline Phosphatase 82 42 - 121 unit/L LAB CHEMISTRY METHOD 08/02/2024 3:07 PM [facility] Total Protein 7.0 6.0 - 8.0 g/dL LAB CHEMISTRY METHOD 08/02/2024 3:07 PM [facility] Albumin 3.7 3.2 - 5.0 g/dL LAB CHEMISTRY METHOD 08/02/2024 3:07 PM [facility] Total Bilirubin 0.5 0.0 - 1.4 mg/dL LAB CHEMISTRY METHOD 08/02/2024 3:07 PM [facility] Blood Venous blood specimen / Unknown Venipuncture / Unknown 08/02/2024 12:50 PM EDT 08/02/2024 1:00 PM EDT us Kateryna Nettles MD LAB BLOOD ORDERABLES Final Re sult [facility] [address] [place] [address], [place] [phone] * MG Mammo Digital Screening w Lili bilat (06/01/2024 10:03 AM EST) Anatomical Region Laterality Modality Breast Bilateral Mammography 06/01/2024 11:3 6 AM EST Impressions 06/01/2024 11:41 AM EST No mammographic evidence of malignancy. No suspicious interval change. A negative mammogram in the presence of a clinically suspicious palpable abnormality does not preclude the possibility of malignancy or alter the indications for biopsy. ASSESSMENT: BI-RADS 2: BENIGN RECOMMENDATION(S): 1: Routine screening mammogram BILATERAL in 1 year. -------- FINAL REPORT -------- Dictated By: Chidi Sullivan Dictated Date: 06/01/2024 11:36 ET Assigned Physician: Chidi Sullivan Reviewed and Electronically Signed By: Chidi Sullivan Signed Date: 06/01/2024 11:41 ET Workstation ID: [id number] Transcribed By: Self Edit Transcribed Date: 06/01/2024 11:36 ET Narrative 06/01/2024 11:41 AM EST EXAM: SCREENING MAMMOGRAPHY, BILATERAL HISTORY: SCREENING. No additional history. COMPARISON: 02/23/2023, 09/06/2020 TECHNIQUE: Synthesized CC and MLO projections of each breast. Tomosynthesis of each breast in the CC and MLO projections. ADDITIONAL IMAGING: None Computer-aided detection was employed with the [employer] AI 3-D. TISSUE DENSITY: There are scattered areas of fibroglandular density. (BI-RADS category B) FINDINGS: RIGHT BREAST: No suspicious mass. No suspicious calcification. No distortion. Stable 0.5 cm oval equal density mass in the 9 o'clock position 1.5 cm from the nipple. LEFT BREAST: No suspicious mass. No suspicious calcification. No distortion. No additional suspicious left breast findings Procedure Note Chidi Sullivan MD - 06/01/2024 EXAM: SCREENING MAMMOGRAPHY, BILATERAL HISTORY: SCREENING. No additional history. COMPARISON: 02/23/2023, 09/06/2020 TECHNIQUE: Synthesized CC and MLO projections of each breast.Tomosynthesis of each breast in the CC and MLO projections. ADDITIONAL IMAGING: None Computer-aided detection was employed with the [employer] AI 3-D. TISSUE DENSITY: There are scattered areas of fibroglandular density.(BI-RADS category B) FINDINGS: RIGHT BREAST: No suspicious mass. No suspicious calcification. No distortion. Stable0.5 cm oval equal density mass in the 9 o'clock position 1.5 cm from thenipple. LEFT BREAST: No suspicious mass. No suspicious calcification. No distortion. Noadditional suspicious left breast findings IMPRESSION: No mammographic evidence of malignancy. No suspicious interval change. A negative mammogram in the presence of a clinically suspicious palpableabnormality does not preclude the possibility of malignancy or alter theindications for biopsy. ASSESSMENT: BI-RADS 2: BENIGN RECOMMENDATION(S): 1: Routine screening mammogram BILATERAL in 1 year. -------- FINAL REPORT -------- Dictated By: Chidi Sullivan Dictated Date: 06/01/2024 11:36 ET Assigned Physician: Chidi Sullivan Reviewed and Electronically Signed By: Chidi Sullivan Signed Date: 06/01/2024 11:41 ET Workstation ID: [id number] Transcribed By: Self Edit Transcribed Date: 06/01/2024 11:36 ET us Marisa Lew MD IMG BI PROCEDURES Final Result * BD Bone Density DXA Axial Skeleton (06/01/2024 9:50 AM EST) Anatomical Region Laterality Modality Wrist, Hip, L-spine Bone Densito metry 06/01/2024 10:0 1 AM EST Impressions 06/01/2024 10:02 AM EST 1. Osteopenia. 2. FRAX analysis yields a 10-year probability of major osteoporotic fracture of 12.9% and a 10-year probability of hip fracture of 1.4%. Code 71798 -------- FINAL REPORT -------- Dictated By: Spencer Reyes Dictated Date: 06/01/2024 10:01 ET Assigned Physician: Spencer Reyes Reviewed and Electronically Signed By: Spencer Reyes Signed Date: 06/01/2024 10:02 ET Workstation ID: [id number] Transcribed By: Self Edit Transcribed Date: 06/01/2024 10:01 ET Narrative 06/01/2024 10:02 AM EST HISTORY: The patient is a 73-year-old postmenopausal female with clinical concern for metabolic bone disease. FINDINGS: Dual energy x-ray absorptiometry of the lumbar spine and femurs is performed. The mean bone mineral density at L2-4 is 1.320 gm/cm2 which is 110% of that of young normals and 119% of that of age matched controls. This yields a T-score of 1.0 and a Z-score of 1.8 and there is therefore no evidence of osteoporosis or osteopenia here. The mean bone mineral density of the femurs bilaterally is 0.987 gm/cm2 which is 98% of that of young normals and 112% of that of age matched controls. This yields a T-score of -0.2 and a Z-score of 0.8 and there is therefore no evidence of osteoporosis or osteopenia here. However, the T-score of the left femoral neck is -1.8 which is diagnostic of osteopenia. Procedure Note Spencer Reyes MD - 06/01/2024 HISTORY: The patient is a 73-year-old postmenopausal female with clinicalconcern for metabolic bone disease. FINDINGS: Dual energy x-ray absorptiometry of the lumbar spine and femursis performed. The mean bone mineral density at L2-4 is 1.320 gm/cm2 whichis 110% of that of young normals and 119% of that of age matched controls.This yields a T-score of 1.0 and a Z-score of 1.8 and there is thereforeno evidence of osteoporosis or osteopenia here. The mean bone mineral density of the femurs bilaterally is 0.987 gm/yj0uquye is 98% of that of young normals and 112% of that of age matchedcontrols. This yields a T-score of -0.2 and a Z-score of 0.8 and there istherefore no evidence of osteoporosis or osteopenia here. However, theT-score of the left femoral neck is -1.8 which is diagnostic ofosteopenia. IMPRESSION: 1. Osteopenia. 2. FRAX analysis yields a 10-year probability of major osteoporoticfracture of 12.9% and a 10-year probability of hip fracture of 1.4%. Code 68313 -------- FINAL REPORT -------- Dictated By: Spencer Reyes Dictated Date: 06/01/2024 10:01 ET Assigned Physician: Spencer Reyes Reviewed and Electronically Signed By: Spencer Reyes Signed Date: 06/01/2024 10:02 ET Workstation ID: [id number] Transcribed By: Self Edit Transcribed Date: 06/01/2024 10:01 ET us Marisa Lew MD IMG DXA PROCEDURES Final Result from Last 3 Months or Most Recently Relevant to Health Maintenance Insurance MEDICARE [facility] Care Teams Logistics Supervisor Relationship Specialty Start Date End Date Kateryna Nettles MD [address] PCP - General 04/08/13
[2025-02-02 14:25] VITALS: BMI 36.0
[2025-02-02 15:55] VITALS: BMI 37.5
--- NOTE | 2025-02-03 09:18 | HO.ANESPROP2 ---
Documented by User: Phyllis Faith NP 02/03/25 09:18 HPI - Anesthesia Eval Consult details Narrative: 74yo F for Colonoscopy, Upper Endoscopy with Balloon Dilitation Anesthesia Pre-Procedure Meds Is the patient on any of the following meds?: GLP1/DPP4 PMFSH Active Problems Active Problems: All Active Problems Rotator cuff tear (Acute) Greater tuberosity of humerus fracture (Acute) Past Medical History Medical History (Updated 02/02/25 @ 14:14 by Molly Wheat, RN) Gastric reflux Arthritis Diabetes Kidney stones HLD (hyperlipidemia) HTN (hypertension) Spinal stenosis Surgical History Surgical History (Updated 02/02/25 @ 15:57 by Molly Wheat, RN) Hx of spinal surgery (~2021) History of bilateral carpal tunnel release History of bilateral knee replacement (2017) Hx of colonoscopy (2013) Social History Social History Are you a primary team primary care physician to a significant other at home: No Do you presently have visiting nurse or other home services: No Patient Tobacco Use Status: Never used Tobacco Use of substances other than those prescribed or required for medical reasons: No Have you been hit, kicked, punched, or otherwise hurt by someone within the past year? 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 Allergies Allergy/AdvReac Type Severity Reaction Status Date / Time amoxicillin (From Augmentin) Allergy Intermediate Gastrointestinal Verified 02/02/25 15:53 Upset clavulanic acid (From Allergy Intermediate Gastrointestinal Verified 02/02/25 15:53 Augmentin) Upset erythromycin base Allergy Intermediate Gastrointestinal Verified 02/02/25 15:53 Upset oxaprozin (From Daypro) Allergy Intermediate Gastrointestinal Verified 02/02/25 15:53 Upset Sulfa (Sulfonamide Allergy Intermediate facial Verified 02/02/25 15:53 Antibiotics) swelling, rash Home Medications ?Medication ?Instructions ?Recorded ?Confirmed ?Last Taken ?Type aspirin 81 mg tablet,delayed 81 mg PO DAILY 01/03/22 02/02/25 01/30/25 History release (Adult Aspirin Regimen) bisoprolol 5 1 tab PO DAILY 01/03/22 02/02/25 Unknown History mg-hydrochlorothiazide 6.25 mg tablet doxazosin 4 mg tablet 4 mg PO DAILY 01/03/22 02/02/25 Unknown History potassium citrate 10 mEq (1,080 10 meq PO BID 01/03/22 02/02/25 Unknown History mg) tablet,extended release allopurinol 300 mg tablet 300 mg PO DAILY 02/02/25 02/02/25 Unknown History candesartan 32 mg tablet 32 mg PO DAILY 02/02/25 02/02/25 Unknown History famotidine 20 mg tablet 20 mg PO DAILY PRN Gastric Reflux 02/02/25 02/02/25 Unknown History semaglutide 0.25 mg or 0.5 mg (2 0.5 mg subcut QWEEK 02/02/25 02/02/25 01/28/25 History mg/3 mL) subcutaneous pen injector (Ozempic) Exam Height,Weight and Vital Signs: Height 5 ft 1.5 in Weight 91.626 kg Assessment and Plan Assessment Anesthesia Assessment: Chart Reviewed Documented by User: Cathy Vega MD 02/06/25 10:02 [facility] Past Medical History Medical History (Updated 02/02/25 @ 14:14 by Molly Wheat RN) Gastric reflux Arthritis Diabetes Kidney stones HLD (hyperlipidemia) HTN (hypertension) Spinal stenosis Family History Family history of problems with anesthesia: No Surgical History Surgical History (Updated 02/02/25 @ 15:57 by Molly Wheat RN) Hx of spinal surgery (~2021) History of bilateral carpal tunnel release History of bilateral knee replacement (2017) Hx of colonoscopy (2013) History of Problems with Anesthesia: No Social History Social History Are you a primary team primary care physician to a significant other at home: No Do you presently have visiting nurse or other home services: No Patient Tobacco Use Status: Never used Tobacco Use of substances other than those prescribed or required for medical reasons: No Have you been hit, kicked, punched, or otherwise hurt by someone within the past year? 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 Allergies Allergy/AdvReac Type Severity Reaction Status Date / Time amoxicillin (From Augmentin) Allergy Intermediate Gastrointestinal Verified 02/02/25 15:53 Upset clavulanic acid (From Allergy Intermediate Gastrointestinal Verified 02/02/25 15:53 Augmentin) Upset erythromycin base Allergy Intermediate Gastrointestinal Verified 02/02/25 15:53 Upset oxaprozin (From Daypro) Allergy Intermediate Gastrointestinal Verified 02/02/25 15:53 Upset Sulfa (Sulfonamide Allergy Intermediate facial Verified 02/02/25 15:53 Antibiotics) swelling, rash Home Medications ?Medication ?Instructions ?Recorded ?Confirmed ?Last Taken ?Type aspirin 81 mg tablet,delayed 81 mg PO DAILY 01/03/22 02/02/25 01/30/25 History release (Adult Aspirin Regimen) bisoprolol 5 1 tab PO DAILY 01/03/22 02/02/25 Unknown History mg-hydrochlorothiazide 6.25 mg tablet doxazosin 4 mg tablet 4 mg PO DAILY 01/03/22 02/02/25 Unknown History potassium citrate 10 mEq (1,080 10 meq PO BID 01/03/22 02/02/25 Unknown History mg) tablet,extended release allopurinol 300 mg tablet 300 mg PO DAILY 02/02/25 02/02/25 Unknown History candesartan 32 mg tablet 32 mg PO DAILY 02/02/25 02/02/25 Unknown History famotidine 20 mg tablet 20 mg PO DAILY PRN Gastric Reflux 02/02/25 02/02/25 Unknown History semaglutide 0.25 mg or 0.5 mg (2 0.5 mg subcut QWEEK 02/02/25 02/02/25 01/28/25 History mg/3 mL) subcutaneous pen injector (Ozempic) Exam Airway Mallampati Class: II TM Dist: >3cm Neck ROM: Full Heart: rrr Lungs: cta Assessment and Plan Assessment Anesthesia Assessment: Anesthesia Plan Discussed Final Anesthetic Review Family History of Problems with Anesthesia: No History of Problems with Anesthesia: No NPO: Yes ASA Class: II Final Preanesthetic Review: No Changes in Pt Med Stat, Meds/Allgs Chart Reviewed and Consent Obtained/Reviewed Patient Risk: Low Procedure Risk: Intermediate Anesthetic Plan Anesthetic Plan: MAC: Disposition: Standard PACU
[2025-02-06 09:35] VITALS: BMI 36.9
[2025-02-06 09:46] VITALS: BP 111/66; PULSE 76; RESP 16; TEMP 36.1; O2SAT 96
[2025-02-06 09:48] LABS: Glucose, Whole Blood 146 mg/dL (60-115)
[2025-02-06] MEDS: Lactated Ringers 1,000 ML 100 ML IVCONT (09:49)
[2025-02-06 12:27] VITALS: BP 101/62; PULSE 64; RESP 13; TEMP 36.1; O2SAT 95
--- NOTE | 2025-02-06 12:38 | PM.OP ---
Brief Operative Note Date of Service: 02/06/25 Pre-op diagnosis: Dysphagia, Screening Post-op diagnosis: other (Colon polyps, Hiatal hernia) Procedure: EGD with biopsies and Balloon dilation of EG [place]unction with an 18 to 19mm balloon, Colonoscopy to the cecum and TI with hot snare polypectomy and bx with removal of polyp Surgeon: Salbador Chapman MD Anesthesia: MAC Was an Asphalt Distributor Operator used for this Procedure?: No Estimated blood loss (mL): 2.0 Pathology: other (A. Esophagus at 20cm B. Ascending colon polyps) Condition: stable Disposition: PACU
[2025-02-06 12:42] VITALS: BP 128/73; PULSE 70; RESP 16; TEMP 36.5; O2SAT 96
--- NOTE | 2025-02-06 23:17 | OP_ITS ---
DATE OF SERVICE: 02/06/2025 SURGEON: Salbador Chapman MD INDICATIONS: The patient presents for evaluation of intermittent dysphagia, gastroesophageal reflux, and colorectal cancer screening. Full consent has been obtained from her for both procedures, including risks of bleeding and perforation. PREOPERATIVE DIAGNOSIS: POSTOPERATIVE DIAGNOSIS: PROCEDURE PERFORMED: Esophagogastroduodenoscopy with balloon dilation of gastroesophageal junction, and biopsies, and colonoscopy to the cecum and terminal ileum with hot snare polypectomy and biopsy removal of polyp. ESTIMATED BLOOD LOSS: COMPLICATIONS: ANESTHESIA: Monitored anesthesia care. ASSISTANTS: SPECIMENS: PREOPERATIVE DIAGNOSES: Gastroesophageal reflux, dysphagia, colorectal cancer screening. POSTOPERATIVE DIAGNOSES: Gastroesophageal reflux, dysphagia, colorectal cancer screening, small hiatal hernia, rule out eosinophilic esophagitis, colon polyps, diverticulosis, and internal hemorrhoids. DESCRIPTION OF PROCEDURE: The patient was placed in the left lateral decubitus position. The Olympus video gastroscope was passed in the posterior oropharynx and upper esophagus under direct vision. There was no sign of any obstructing stricture or ring at the proximal esophagus or upper esophageal sphincter. The scope easily entered the esophagus and passed to the distal esophagus. The gastroesophageal junction appeared at 38 cm. There was some slight irregularity consistent with reflux but no evidence of esophagitis nor any definitive evidence of Car's esophagus. With insufflation of air, the gastroesophageal junction did appear to open normally. The scope easily entered the stomach. There was a small hiatal hernia. The scope was advanced to pylorus. The duodenum was cannulated to the descending portion. The duodenum including the bulb appeared normal without mass or ulceration. The scope was withdrawn back to the stomach. The gastric antrum and body appeared normal with good peristalsis. The scope was retroflexed visualizing the proximal stomach carefully, which appeared normal, without any sign of mass or ulceration.. The scope was straightened and withdrawn back to the esophagus. I did not visualize any sign of esophageal stricture, ring, nor Car's esophagus. Given her symptoms, I did use a [employer] incremental balloon to dilate the gastroesophageal junction from 18 mm to 19 mm at the recommended pressure for 60 seconds each. Postdilation, there did not appear to be any appreciable heme or change in the gastroesophageal junction. The esophageal mucosa appeared completely normal as the scope was withdrawn. There were no proximal esophageal rings or other abnormalities. Biopsies were obtained at 20 cm to rule out eosinophilic esophagitis. The scope was withdrawn from the patient. She was turned around for the colonoscopy. The digital rectal exam revealed no abnormalities. The Olympus video pediatric colonoscope was entered into the rectum and advanced easily to the cecum. Once in the cecum, I did identify normal-appearing cecal pouch with appendiceal orifice and normal-appearing ileocecal valve. The terminal ileum was cannulated and appeared normal. Scope withdrawn back in the colon. The entire cecum and ileocecal valve appeared normal. The scope was then slowly withdrawn assessing all mucosal surfaces carefully. Preparation was excellent. In the ascending colon was a flat, but raised approximately 1.2 cm polyp, which was removed by hot snare polypectomy, recovered by suction. The polypectomy site appeared clean, without any sign of residual polyp nor bleeding. Just distal to this was a 3 mm polyp, which was biopsied and completely removed with cold biopsy forceps and placed in the same container. I did not visualize any other polyps, colitis, nor angiodysplasia. There was a mild amount of sigmoid diverticulosis. In the rectum, scope was retroflexed visualizing internal hemorrhoids, but no other pathology. The rectal mucosa appeared normal. Scope was straightened and withdrawn from the patient. She tolerated both procedures well and was returned to recovery area in stable condition. IMPRESSION: 1. Small hiatal hernia, gastroesophageal reflux, status post balloon dilation of gastroesophageal junction. 2. Rule out eosinophilic esophagitis. 3. Colon polyps. 4. Diverticulosis. 5. Internal hemorrhoids. PLAN: The results of the pathology will be checked. I would recommend a repeat colonoscopy in 5 years for further screening given today's findings, although at that point she will be close to 80 and we would need to take her clinical condition into account. She was advised not to use any aspirin and NSAIDs for 1 week. I did advise to continue her current regimen of the H2 keon for any acid reflux. She will see me on a p.r.n. basis. She was advised not to use any aspirin and NSAIDs for 1 week. MD LEANNE Linton/YOMI / [id number]
== END 2025-02-06 12:57 | disposition home or self-care (01) ==
PROVIDERS: PCP Internal Medicine; Visit Provider Internal Medicine
PROC: 0DJD8ZZ Inspection of Lower Intestinal Tract, Via Natural or Artificial Opening Endoscopic (ICD-10-PCS; CPT 45378; principal; 2025-02-06 10:30)
PROC: (CPT 45385; 2025-02-06 10:30)
DX: Z12.11 Encounter for screening for malignant neoplasm of colon (principal); D12.2 Benign neoplasm of ascending colon; K57.30 Diverticulosis of large intestine without perforation or abscess without bleeding; K64.8 Other hemorrhoids; R13.10 Dysphagia, unspecified; K21.9 Gastro-esophageal reflux disease without esophagitis; K44.9 Diaphragmatic hernia without obstruction or gangrene; E11.9 Type 2 diabetes mellitus without complications; I10 Essential (primary) hypertension; E78.5 Hyperlipidemia, unspecified; Z79.82 Long term (current) use of aspirin; Z79.02 Long term (current) use of antithrombotics/antiplatelets; Z79.899 Other long term (current) drug therapy; Z79.84 Long term (current) use of oral hypoglycemic drugs
CPT/HCPCS: 45385; 45380; 43249; 43239; 82947; 88305; C1726; J2003; J2704; J3010